=== PATIENT | male | born 1980 | race African-American/Black ===

== ENCOUNTER 2018-11-17 00:42 | Emergency (ER) | payer OTHER ==
[~2018-11-17] VITALS: Ht 167.6 cm; Wt 79.4 kg
[2018-11-17] MEDS ORDERED: OMEP20CA12 PO (00:58)
[2018-11-17] MEDS ORDERED: AMLO10TA4 PO (00:58)
[2018-11-17] MEDS ORDERED: CLIN300C11 PO (00:58)
--- NOTE | 2018-11-17 01:12 | ED General ---
General Chief Complaint: Cough/Cold/Flu Symptoms Stated Complaint: CHILLS, HEADACHE, BODY ACHES, SORE THROAT Nursing Triage Note: COUGH, BODYACHE, CHILLS, FEVER, SORETHROAT, HEADACHE. Nursing Sepsis Screen: No Definite Risk Source of Information: Patient Exam Limitations: No Limitations History of Present Illness Date Seen by Provider: November 17, 2018 Time Seen by Provider: 00:49 Initial Comments This 38-year-old gentleman presents to the emergency room with flulike symptoms including chills, fever, body ache, headache, cough, and sore throat. He left work tonight because of the symptoms. He states a another employee left work for similar symptoms. Symptoms have been present for a little over 24 hours. He is from [place] and is traveling for work. He has been in the area for about 2 weeks. He has hypertension but denies any other health problems. He has taken Tylenol for the pain and fever. He also had some leftover clindamycin from a prior prescription and he has taken a few doses of that as well. Allergies and Home Medications Allergies Coded Allergies: Penicillins (Verified Allergy, Unknown, 11/17/18) Home Medications Amlodipine Besylate 10 Mg Tablet, 10 MG PO DAILY, (Reported) Patient Home Medication List Home Medication List Reviewed: Yes Review of Systems Review of Systems Constitutional: see HPI EENTM: see HPI Respiratory: see HPI Cardiovascular: no symptoms reported Gastrointestinal: no symptoms reported Genitourinary: no symptoms reported Musculoskeletal: no symptoms reported Skin: no symptoms reported Psychiatric/Neurological: See HPI Hematologic/Lymphatic: No Symptoms Reported Past Eqxobla-Mtbceo-Vuezvp Hx Past Med/Social Hx: Reviewed and Corrections made Patient Social History Alcohol Use: Denies Use Recreational Drug Use: No Smoking Status: Current Everyday Smoker Type Used: Cigarettes 2nd Hand Smoke Exposure: Yes Recent Foreign Travel: No Contact w/Someone Who Travel: No Recent Infectious Disease Expo: No Recent Hopitalizations: No Immunizations Up To Date Tetanus Booster (TDap): Unknown Seasonal Allergies Seasonal Allergies: No Past Medical History Surgeries: Yes Orthopedic (L4) Respiratory: No Cardiac: Yes Hypertension Neurological: No Genitourinary: No Gastrointestinal: No Musculoskeletal: Yes Chronic Back Pain Endocrine: No HEENT: No Cancer: No Psychosocial: No Integumentary: No Blood Disorders: No Physical Exam Vital Signs Vital Signs - First Documented Capillary Refill : Less Than 3 Seconds Height, Weight, BMI Height: 5'6.00" Weight: 175lbs. oz. 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 Skin: Normal Color, Warm/Dry Progress/Results/Core Measures Suspected Sepsis Recent Fever Within 48 Hours: Yes Infection Criteria Present: Documented Infection New/Unexplained Altered Menta: No Sepsis Screen: No Definite Risk SIRS Temperature:102.3 Pulse: 72 Respiratory Rate: 18 Blood Pressure 141 /88 Mean: 105 Results/Orders Micro Results Microbiology 11/17/18 Influenza Types A,B Antigen (MERARI) - Final, Complete My Orders Orders - PABLO SANTO MD Ketorolac Injection (Toradol Injection) (11/17/18 01:15) Influenza A And B Antigens (11/17/18 01:03) Chest Pa/Lat (2 View) (11/17/18 01:29) Medications Given in ED Current Medications Medications Dose Ordered Sig/Socrates Route Start Time Stop Time Status Last Admin Dose Admin Ketorolac Tromethamine 30 mg ONCE ONCE IM 11/17/18 01:15 11/17/18 01:16 DC 11/17/18 01:15 30 MG Vital Signs/I&O 11/17/18 11/17/18 11/17/18 11/17/18 00:50 00:50 01:15 01:58 Temp 102.3 102.3 98.7 Pulse 72 94 Resp 18 16 B/P (MAP) 141/88 (105) 106/67 (80) Pulse Ox 95 97 O2 Delivery Room Air Room Air Room Air Capillary Refill : Less Than 3 Seconds Blood Pressure Mean: 105 Progress Note : Time: 01:09 Progress Note Patient was seen and examined. Influenza screen is in process. Toradol is being given for myalgia and fever. Diagnostic Imaging Diagonstic Imaging: Xray Plain Films/CT/US/NM/MRI: chest Comments Chest x-ray viewed by me. Report not yet available. Basilar atelectasis with no acute infiltrate or consolidation to suggest pneumonia. Departure Impression Primary Impression: Influenza-like symptoms Disposition: HOME, SELF-CARE Condition: Improved Departure-Patient Inst. Decision time for Depature: 01:53 Patient Instructions: VIRAL SYNDROME Add. Discharge Instructions: Your symptoms are likely caused by a flulike virus. For pain take ibuprofen up to 600 mg every 6 hours as needed and/or Tylenol (acetaminophen) up to 1000 mg every 6 hours. Do not return to work until you are free of fever for at least 24 hours. Return to the emergency room if you have worsening symptoms. Drink plenty of clear liquids. All discharge instructions reviewed with patient and/or family. Voiced understanding. Work/School Note: Work Release Form Date Seen in the Emergency Department: November 17, 2018 Return to Work: November 19, 2018 Restrictions: Return-No Vomiting(24hrs) PABLO SANTO MD November 17, 2018 01:12
[2018-11-17] MEDS ORDERED: KETOROLAC 30 MG/ML VIAL IM ONE (01:15)
[2018-11-17 01:58] VITALS: BP 106/67
--- NOTE | 2018-11-17 06:05 | Diagnostic Imaging Report ---
INDICATION: Cough COMPARISON: None. FINDINGS: Frontal and lateral views the chest demonstrate clear lungs bilaterally. The heart size is normal. There is no pneumothorax. Osseous structures are normal. IMPRESSION: No acute findings. Normal chest. Dictated by: Dictated on workstation # [id number]
== END 2018-11-17 02:01 | disposition home or self-care (01) ==
LOC: ER 00:46
DX: R51 Headache (principal); J02.9 Acute pharyngitis, unspecified; I10 Essential (primary) hypertension; F17.210 Nicotine dependence, cigarettes, uncomplicated; Z88.0 Allergy status to penicillin
CPT/HCPCS: 71046; 87804

== ENCOUNTER 2018-11-18 16:17 | Emergency (ER) | payer MEDICARE, OTHER ==
[~2018-11-18] VITALS: Ht 167.6 cm; Wt 81.6 kg
[~2018-11-18 16:17] MED LIST: AMLO10TA4 PO; CLIN300C11 PO; OMEP20CA12 PO
[2018-11-18] MEDS ORDERED: NS IV 1000 ML 1,000 ML IV SCH (16:30)
[2018-11-18] MEDS ORDERED: KETOROLAC 30 MG/ML VIAL IVP ONE (16:30)
--- NOTE | 2018-11-18 16:44 | ED Cough/URI ---
General Chief Complaint: Cough/Cold/Flu Symptoms Stated Complaint: FLU TYPE A/FEVER/BODY ACHES/WEAKNESS Nursing Triage Note: PT REPORTS HAVING FEVER, BODY ACHES, WEAKNESS, COTE, CHILLS, AND A HARD TIME SWALLOWING FOR ABOUT A WEEK. PT WAS SEEN IN ER TWO OR SO DAYS AGO BUT TESTED NEGATIVE FOR THE FLU. PT WENT TO URGENT CARE YESTERDAY AND TESTED POSITIVE FOR FLU A. PT STATES HE ISNT FEELING BETTER WITH OTC MEDICATIONS. Sepsis Screen: Possible Sepsis Risk Source: patient Exam Limitations: no limitations History of Present Illness Date Seen by Provider: November 18, 2018 Time Seen by Provider: 16:43 Initial Comments To ER with reports of fever, body aches, weakness, headache and chills as well as sore throat for 5 days. He was seen in the ER 2 days ago tested negative for influenza. He went to urgent care yesterday. Went to urgent care again today, tested positive for influenza A and was told to come to the emergency room. Not feeling better with jadh-yfc-oepaess medications but he's only had 1 dose of Tylenol today no ibuprofen or decongestants. He denies any recent tick bites. He is here for work. Timing/Duration: constant Severity/Quality: dry cough Associated Symptoms: cough, fever/chills, sore throat Allergies and Home Medications Allergies Coded Allergies: Penicillins (Verified Allergy, Mild, 11/18/18) RASH Home Medications Amlodipine Besylate 10 Mg Tablet, 10 MG PO DAILY, (Reported) Patient Home Medication List Home Medication List Reviewed: Yes Review of Systems Review of Systems Constitutional: see HPI, chills, fever, malaise, weakness EENTM: see HPI Respiratory: see HPI, cough ( EF) Cardiovascular: no symptoms reported Genitourinary: no symptoms reported Musculoskeletal: no symptoms reported Skin: no symptoms reported Psychiatric/Neurological: No Symptoms Reported Hematologic/Lymphatic: No Symptoms Reported Immunological/Allergic: no symptoms reported (of God) Past Azngwyu-Bfhgxx-Birjdg Hx Patient Social History Type Used: Cigarettes 2nd Hand Smoke Exposure: Yes Recent Foreign Travel: No Contact w/Someone Who Travel: No Recent Infectious Disease Expo: No Recent Hopitalizations: No Immunizations Up To Date Tetanus Booster (TDap): Unknown Seasonal Allergies Seasonal Allergies: No Past Medical History Surgeries: Yes Orthopedic Respiratory: No Cardiac: Yes Hypertension Neurological: No Genitourinary: No Gastrointestinal: No Musculoskeletal: Yes Chronic Back Pain Endocrine: No HEENT: No Cancer: No Psychosocial: No Integumentary: No Blood Disorders: No Physical Exam Vital Signs - First Documented 11/18/18 16:21 Temp 100.7 Pulse 130 Resp 16 B/P (MAP) 123/82 (96) Pulse Ox 95 Capillary Refill : Less Than 3 Seconds Height: 5'6.00" Weight: 180lbs. oz. 81.474556za; BMI Method:Stated General Appearance: WD/WN, no apparent distress Eyes: Bilateral Eye Normal Inspection, Bilateral Eye PERRL, Bilateral Eye EOMI HEENT: PERRL/EOMI, normal ENT inspection, TMs normal, pharynx normal Neck: non-tender, full range of motion, lymphadenopathy (R), lymphadenopathy (L) Respiratory: normal breath sounds, no respiratory distress, no accessory muscle use Cardiovascular: no murmur, tachycardia Gastrointestinal: normal bowel sounds, non tender, soft Neurologic/Psychiatric: alert, normal mood/affect, oriented x 3 Skin: normal color, warm/dry Progress/Results/Core Measures Suspected Sepsis Recent Fever Within 48 Hours: Yes Infection Criteria Present: Suspected New Infection New/Unexplained Altered Menta: No Sepsis Screen: Possible Sepsis Risk SIRS Temperature:100.7 Pulse: 130 Respiratory Rate: 16 Laboratory Tests 11/18/18 16:40: White Blood Count 7.7 Blood Pressure 123 /82 Mean: 96 Laboratory Tests 11/18/18 16:40: Creatinine 1.30, Platelet Count 269, Total Bilirubin 0.3 Results/Orders Lab Results Laboratory Tests Test 11/18/18 16:40 11/18/18 17:10 Range/Units White Blood Count 7.7 4.3-11.0 10^3/uL Red Blood Count 4.98 4.35-5.85 10^6/uL Hemoglobin 13.6 13.3-17.7 G/DL Hematocrit 42 40-54 % Mean Corpuscular Volume 83 80-99 FL Mean Corpuscular Hemoglobin 27 25-34 PG Mean Corpuscular Hemoglobin Concent 33 32-36 G/DL Red Cell Distribution Width 17.5 H 10.0-14.5 % Platelet Count 269 130-400 10^3/uL Mean Platelet Volume 9.7 7.4-10.4 FL Neutrophils (%) (Auto) 72 42-75 % Lymphocytes (%) (Auto) 20 12-44 % Monocytes (%) (Auto) 7 0-12 % Eosinophils (%) (Auto) 0 0-10 % Basophils (%) (Auto) 1 0-10 % Neutrophils # (Auto) 5.5 1.8-7.8 X 10^3 Lymphocytes # (Auto) 1.5 1.0-4.0 X 10^3 Monocytes # (Auto) 0.6 0.0-1.0 X 10^3 Eosinophils # (Auto) 0.0 0.0-0.3 10^3/uL Basophils # (Auto) 0.0 0.0-0.1 10^3/uL Sodium Level 142 135-145 MMOL/L Potassium Level 3.8 3.6-5.0 MMOL/L Chloride Level 107 98-107 MMOL/L Carbon Dioxide Level 23 21-32 MMOL/L Anion Gap 12 5-14 MMOL/L Blood Urea Nitrogen 11 7-18 MG/DL Creatinine 1.30 0.60-1.30 MG/DL Estimat Glomerular Filtration Rate > 60 BUN/Creatinine Ratio 8 Glucose Level 115 H 70-105 MG/DL Calcium Level 9.1 8.5-10.1 MG/DL Corrected Calcium 9.0 8.5-10.1 MG/DL Total Bilirubin 0.3 0.1-1.0 MG/DL Aspartate Amino Transf (AST/SGOT) 34 5-34 U/L Alanine Aminotransferase (ALT/SGPT) 36 0-55 U/L Alkaline Phosphatase 101 40-136 U/L Total Protein 8.0 6.4-8.2 GM/DL Albumin 4.1 3.2-4.5 GM/DL My Orders Orders - JUAN GOMEZ [employer] Cbc With Automated Diff (11/18/18 16:22) Comprehensive Metabolic Panel (11/18/18 16:22) Ua Culture If Indicated (11/18/18 16:22) Tick Panel With Lyme Eia (11/18/18 16:22) Ed Iv/Invasive Line Start (11/18/18 16:22) Ns Iv 1000 Ml (Sodium Chloride 0.9%) (11/18/18 16:30) Ketorolac Injection (Toradol Injection) (11/18/18 16:30) Guaifenesin/Dm Syrup (Robitussin Dm Syru (11/18/18 16:45) Acetaminophen Tablet (Tylenol Tablet) (11/18/18 16:45) Medications Given in ED Current Medications Medications Dose Ordered Sig/Socrates Route Start Time Stop Time Status Last Admin Dose Admin Acetaminophen 1,000 mg ONCE ONCE PO 11/18/18 16:45 11/18/18 16:46 DC 11/18/18 17:06 1,000 MG Guaifenesin/ Dextromethorphan 7.5 ml ONCE PRN PO 11/18/18 16:45 11/18/18 17:07 7.5 ML Ketorolac Tromethamine 15 mg ONCE ONCE IVP 11/18/18 16:30 11/18/18 16:31 DC 11/18/18 16:46 15 MG Vital Signs/I&O 11/18/18 16:21 Temp 100.7 Pulse 130 Resp 16 B/P (MAP) 123/82 (96) Pulse Ox 95 Capillary Refill : Less Than 3 Seconds Blood Pressure Mean: 96 Departure Impression Primary Impression: Influenza-like symptoms Disposition: 01 HOME, SELF-CARE Condition: Stable Departure-Patient Inst. Decision time for Depature: 17:14 Referrals: NO,LOCAL PHYSICIAN (PCP/Family) Primary Care Physician Patient Instructions: NO INSTRUCTIONS GIVEN Add. Discharge Instructions: 1. Return to ER for any concerns 2. Expect symptoms to persist for 2-3 days. 3. You must take Tylenol every 4 hours and ibuprofen every 6-8 hours for the next few days to help control symptoms. Work/School Note: Work Release Form Date Seen in the Emergency Department: November 18, 2018 Return to Work: November 23, 2018 JUAN GOMEZ APRN November 18, 2018 16:44
[2018-11-18] MEDS ORDERED: ACETAMINOPHEN 500 MG TAB (TYLENOL) PO ONE (16:45)
[2018-11-18] MEDS ORDERED: guaiFENesin/DM (ROBITUSSIN DM) 10 ML UDC PO PRN (16:45)
[2018-11-18 16:46] LABS: BASOPHILS % (AUTO) 1 % (0-10); EOSINOPHILS % (AUTO) 0 % (0-10); HEMATOCRIT 42 % (40-54); HEMOGLOBIN 13.6 G/DL (13.3-17.7); LYMPHOCYTES # (AUTO) 1.5 X 10^3 (1.0-4.0); LYMPHOCYTES % (AUTO) 20 % (12-44); MEAN CORPUSCULAR HEMOGLOBIN 27 PG (25-34); MEAN CORPUSCULAR HGB CONC 33 G/DL (32-36); MEAN CORPUSCULAR VOLUME 83 FL (80-99); MEAN PLATELET VOLUME 9.7 FL (7.4-10.4); MONOCYTES # (AUTO) 0.6 X 10^3 (0.0-1.0); MONOCYTES % (AUTO) 7 % (0-12); NEUTROPHILS # (AUTO) 5.5 X 10^3 (1.8-7.8); NEUTROPHILS % (AUTO) 72 % (42-75); PLATELET COUNT 269 10^3/uL (130-400); RED CELL DISTRIBUTION WIDTH 17.5 % (10.0-14.5); WHITE BLOOD COUNT 7.7 10^3/uL (4.3-11.0)
[2018-11-18 17:06] LABS: ALANINE AMINOTRANSFERASE 36 U/L (0-55); ALBUMIN 4.1 GM/DL (3.2-4.5); ALKALINE PHOSPHATASE 101 U/L (40-136); BILIRUBIN,TOTAL 0.3 MG/DL (0.1-1.0); BUN/CREATININE RATIO 8; CALCIUM 9.1 MG/DL (8.5-10.1); CARBON DIOXIDE 23 MMOL/L (21-32); CHLORIDE 107 MMOL/L (98-107); GFR ESTIMATED > 60; GLUCOSE 115 MG/DL (70-105); POTASSIUM 3.8 MMOL/L (3.6-5.0); SODIUM 142 MMOL/L (135-145)
[2018-11-18 17:15] LABS: BILIRUBIN,URINE NEGATIVE (NEGATIVE); CLARITY,URINE CLEAR; COLOR,URINE YELLOW; GLUCOSE, URINE (UA) NEGATIVE (NEGATIVE); KETONES,URINE NEGATIVE (NEGATIVE); LEUKOCYTE ESTERASE ,URINE 1+ (NEGATIVE); NITRITE,URINE NEGATIVE (NEGATIVE); PH,URINE 5 (5-9); PROTEIN,URINE 2+ (NEGATIVE); UROBILINOGEN,URINE NORMAL (NORMAL)
[2018-11-18 17:24] LABS: BACTERIA,URINE NEGATIVE /HPF; RBC,URINE RARE /HPF; SQUAMOUS EPITHELIAL CELL,UR 0-2 /HPF
[2018-11-18 17:53] VITALS: BP 123/82
== END 2018-11-18 17:53 | disposition home or self-care (01) ==
LOC: EDUNIT# 16:17 → ER 16:18
DX: J02.9 Acute pharyngitis, unspecified (principal); R53.1 Weakness; R51 Headache; I10 Essential (primary) hypertension; Z88.0 Allergy status to penicillin; Z77.22 Contact with and (suspected) exposure to environmental tobacco smoke (acute) (chronic); Z87.09 Personal history of other diseases of the respiratory system
CPT/HCPCS: 36415; 80053; 81000; 85025; 86618; 86666; 86668; 86757